=== PATIENT | female | born 1985 | race Caucasian/White ===

== ENCOUNTER 2017-04-14 01:13 | Emergency (ER) | payer SELFPAY ==
[2017-04-14 01:25] VITALS: BP 113/70; BMI 27.5
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
== END 2017-04-14 02:25 | disposition home or self-care (01) ==
LOC: ER 01:13
DX: S00.432A Contusion of left ear, initial encounter (principal); X58.XXXA Exposure to other specified factors, initial encounter; Y92.9 Unspecified place or not applicable
CPT/HCPCS: 99281; 99282